=== PATIENT | female | born 1975 | race African-American/Black ===

== ENCOUNTER 2017-06-16 18:36 | Emergency (ER) | payer BC, SELFPAY ==
[2017-06-16] MEDS ORDERED: Ondansetron ODT 4 MG TAB ONE (18:51)
[2017-06-16 20:44] LABS: #Basophils 0.1 thou/uL (0.0-0.2); #Lymphocytes 0.5 thou/uL (1.20-3.40); #Monocytes 0.2 thou/uL (0.11-0.59); #Neutrophils 5.5 thou/uL (1.40-6.50); %Basophils 0.9 % (0.0-1.0); %Monocytes 2.7 % (0.0-10.0); %Neutrophils 88.5 % (42.0-75.0); Hemoglobin 14.7 g/dL (12.0-16.0); Mean Corpuscular HGB CONC 33.3 g/dL (32.0-36.0); Mean Corpuscular Hemoglobin 29.8 pg (27.0-31.0); Mean Corpuscular Volume 89.4 fl (81.0-99.0); Mean Platelet Volume 9.6 fL (7.4-10.4); Platelet Count 138 thou/uL (130-400); Red Blood Cell (RBC) Count 4.93 mill/uL (4.20-5.40); White Blood Cell (WBC) Count 6.2 thou/uL (4.8-10.8)
[2017-06-16] MEDS ORDERED: Pantoprazole 40 MG VIAL ONE (20:56)
[2017-06-16] MEDS ORDERED: Promethazine HCl 25 MG/ML VIAL ONE (20:56)
[2017-06-16 21:02] LABS: ALT (SGPT) 39 U/L (8-55); AST (SGOT) 36 U/L (5-34); Albumin 4.8 g/dL (3.5-5.0); Alkaline Phosphatase 49 U/L (40-150); Anion Gap 14 mmol/L (10-20); BUN (Urea Nitrogen) 13 mg/dL (7.0-18.7); Bilirubin, Total 0.4 mg/dL (0.2-1.2); Calc. Creatinine Clearance 0 mL/min (70-130); Calcium 10.4 mg/dL (7.8-10.44); Carbon Dioxide 22 mmol/L (22-29); Chloride 112 mmol/L (98-107); Estimated GFR-MDRD 89; Globulin 3.7 g/dL (2.4-3.5); Glucose 147 mg/dL (70-105); Potassium 3.9 mmol/L (3.5-5.1); Protein, Total 8.5 g/dL (6.0-8.3); Sodium 144 mmol/L (136-145)
[2017-06-16] MEDS ORDERED: Meclizine HCl 25 MG TAB ONE (22:19)
[2017-06-16] MEDS ORDERED: Ketorolac Tromethamine 30 MG/ML VIAL ONE (22:43)
== END 2017-06-17 01:00 | disposition home or self-care (01) ==
LOC: ERS 18:36
DX: R11.2 Nausea with vomiting, unspecified (principal); R42 Dizziness and giddiness; F41.9 Anxiety disorder, unspecified; F17.210 Nicotine dependence, cigarettes, uncomplicated; Z71.6 Tobacco abuse counseling; Z79.899 Other long term (current) drug therapy
CPT/HCPCS: 80053; 83690; 85025; 85652; 96361; 96374; 96375; 99406; C9113; J1885; J2550; Q0162

== ENCOUNTER 2017-07-12 15:28 | Inpatient (IN) | payer SELFPAY ==
[2017-07-12] MEDS ORDERED: Magnesium Sulfate 2 GM/100 ML BAG ONE ×3 (16:04→18:26)
[2017-07-12] MEDS ORDERED: Promethazine HCl 25 MG/ML VIAL ONE (16:20)
[2017-07-12 16:38] LABS: Hemoglobin 14.7 g/dL (12.0-16.0); Mean Corpuscular HGB CONC 32.6 g/dL (32.0-36.0); Mean Corpuscular Hemoglobin 29.5 pg (27.0-31.0); Mean Corpuscular Volume 90.3 fl (81.0-99.0); Mean Platelet Volume 10.1 fL (7.4-10.4); Platelet Count 154 thou/uL (130-400); RBC Distribution Width 15.5 % (11.5-14.5); White Blood Cell (WBC) Count 6.3 thou/uL (4.8-10.8)
[2017-07-12 16:57] LABS: CKMB 1.3 ng/mL (0-6.6)
[2017-07-12 17:00] LABS: #Basophils 0.1 thou/uL (0.0-0.2); #Lymphocytes 0.6 thou/uL (1.20-3.40); #Monocytes 0.2 thou/uL (0.11-0.59); #Neutrophils 5.4 thou/uL (1.40-6.50); %Basophils 1.6 % (0.0-1.0); %Eosinophils 0.2 % (0.0-10.0); %Lymphocytes 9.4 % (21.0-51.0); %Monocytes 3.3 % (0.0-10.0); %Neutrophils 85.6 % (42.0-75.0); Anisocytosis SLIGHT = 6-15 cells (100X) (0-5/hpf); MDiff Complete? YES; PLT Morphology Comment Appears Adequate
[2017-07-12 17:07] LABS: ALT (SGPT) 23 U/L (8-55); AST (SGOT) 36 U/L (5-34); Albumin 4.6 g/dL (3.5-5.0); Alkaline Phosphatase 49 U/L (40-150); Anion Gap 19 mmol/L (10-20); BUN (Urea Nitrogen) 13 mg/dL (7.0-18.7); Bilirubin, Total 0.4 mg/dL (0.2-1.2); CK (CPK) 111 U/L (29-168); CRP (Inflammatory) Less than 0.50 mg/dL (= or < 0.5); Calc. Creatinine Clearance 0 mL/min (70-130); Calcium 10.4 mg/dL (7.8-10.44); Carbon Dioxide 16 mmol/L (22-29); Chloride 109 mmol/L (98-107); Estimated GFR-MDRD Greater than 90; Globulin 4.4 g/dL (2.4-3.5); Glucose 142 mg/dL (70-105); Lipase 8 U/L (8-78); Sodium 139 mmol/L (136-145)
[2017-07-12 17:29] LABS: Troponin I Less than 0.010 ng/mL (< 0.028)
[2017-07-12] MEDS ORDERED: Morphine 4 MG/ML VIAL ONE (18:20)
[2017-07-12] MEDS ORDERED: NS 0.9% w/ 20 MEQ KCL 1,000 ML IV SCH (18:30)
[2017-07-12 18:38] LABS: Bilirubin Negative (Negative); Blood, Urine Negative (Negative); Clarity CLOUDY (Clear); Glucose, Urine (Dipstick) Negative (Negative); Leukocyte Negative (Negative); Nitrite Negative (Negative); Protein, Urine (Dipstick) Negative (Neg-Trace); Specific Gravity, Urine 1.018 (1.002-1.036); Urobilinogen 0.2 mg/dL (0.2-1.0); pH, Urine 7.5 (5.0-9.0)
[2017-07-12 18:40] LABS: Acetaminophen Less than 6.0 mcg/mL (10.0-30.0); Alcohol Less than 10 mg/dL (Less than 10); Salicylate Less than 8.0 mg/dL (15.0-30.0)
[2017-07-12 18:46] LABS: Amphetamine Not Detected (NotDetected); Barbiturates Screen Not Detected (NotDetected); Benzodiazepine Screen Not Detected (NotDetected); Cocaine Metabolite Screen Not Detected (NotDetected); Medtox Control Line Valid? VALID (VALID); Medtox Reader # READER 4; Methadone Not Detected (NotDetected); Methamphetamine Not Detected (NotDetected); Opiate Screen Not Detected (NotDetected); Oxycodone Screen Not Detected (NotDetected); Phencyclidine (PCP) Not Detected (NotDetected); THC/Cannabinoid Screen Detected (NotDetected); Tricyclic Screen Not Detected (NotDetected)
[2017-07-12 20:08] VITALS: BMI 21.6
[2017-07-12] MEDS ORDERED: 1/2 NS w/KCL 20 mEq 1,000 ML IV SCH (20:45)
[2017-07-12 21:36] LABS: Lactic Acid 1.9 mmol/L (0.5-2.2)
[2017-07-12 21:39] LABS: Troponin I Less than 0.010 ng/mL (< 0.028)
[2017-07-12] MEDS ORDERED: Morphine 4 MG/ML VIAL SLOW IVP PRN (22:21)
[2017-07-12] MEDS ORDERED: Diabetic Tussin 200 MG/10 ML UDCUP PO PRN (22:25)
[2017-07-12] MEDS ORDERED: Loratadine 10 MG TAB PO PRN (22:25)
[2017-07-12] MEDS ORDERED: Ondansetron HCl/PF 4 MG/2 ML Vial IVP PRN ×2 (22:25→22:30)
[2017-07-12] MEDS ORDERED: Calcium Carbonate 500 MG ChewTAB PO PRN (22:25)
[2017-07-12] MEDS ORDERED: Bisacodyl 5 MG TAB PO PRN ×2 (22:25)
[2017-07-12] MEDS ORDERED: Senokot 8.6 MG TAB PO PRN ×2 (22:25)
[2017-07-12] MEDS ORDERED: traMADol HCl 50 MG TAB PO PRN (22:25)
[2017-07-12] MEDS ORDERED: Mag-Al 1200 mg/1200 mg/30 ML UDCUP PO PRN (22:25)
[2017-07-12] MEDS ORDERED: Nitroglycerin 0.4 MG TAB (25 Tab Bottle) SL PRN (22:25)
[2017-07-12] MEDS ORDERED: Benzonatate 100 MG CAP PO PRN (22:25)
[2017-07-12] MEDS ORDERED: SUMAtriptan Succinate 6 MG/0.5 ML VIAL SC PRN (22:32)
[2017-07-12] MEDS ORDERED: SUMAtriptan Succinate 6 MG/0.5 ML VIAL SC SCH (22:45)
[2017-07-12] MEDS ORDERED: Meclizine HCl 25 MG TAB PO SCH (22:45)
[2017-07-13 00:44] LABS: Troponin I Less than 0.010 ng/mL (< 0.028)
[2017-07-13] MEDS ORDERED: Naloxone HCl 2 MG in Sodium Chloride 0.9% 500 ML IV PRN (01:51)
[2017-07-13] MEDS ORDERED: Naloxone HCl 2 MG, Admixture Fee 1 EACH in Sodium Chloride 0.9% 500 ML IV PRN (01:57)
[2017-07-13] MEDS ORDERED: Sodium Chloride 0.9% 1,000 ML IV SCH (02:00)
--- NOTE | 2017-07-13 02:14 | HP ---
DATE OF ADMISSION: 07/12/2017 CHIEF COMPLAINT: Vomiting and dizziness. HISTORY OF PRESENT ILLNESS: Ms. Jacques is a 42-year-old -[place] female with past medical hist ory of cyclic vomiting and chronic marijuana abuse, who presented to the ER with the above-mentioned complaint. History is mainly obtained by her female partner who is present in the room. Ms. Jacques is very somnolent at this time and is not willing to participate in the examination or history. According to her partner, she has been feeling fine up until this morning when she started to feel di zzy and started to throw up. She has not been able to keep anything down since this morning. She al so had some shortness of breath and diarrhea since early this morning. No inciting factors. No reli eving factors either. She normally takes meclizine as well as Phenergan as prescribed by her primary care physician and has been stable on those. Upon presentation to the emergency room, she was hemodynamically stable, but her heart rate was found to be low at 35. Her EKG showed prolonged QT interval and some bigeminy. Otherwise, rest of her wo rkup including CBC and serum chemistries were unremarkable. She did have elevated lactic acid at 3.8 thought to be secondary to vomiting and her drug screen was positive for marijuana. She received mo re Zofran and Phenergan in the emergency room along with magnesium. Case was discussed between the E R physician and metal stamper on-call, Dr. Gordon and she is now being admitted to Intermediate Care Unit for symptomatic bradycardia, prolonged QT interval bigeminy as well as for intractable vomiting and vertigo. PAST MEDICAL HISTORY: 1. Cyclic vomiting. 2. Chronic cannabis use. 3. History of esophageal diverticula by EGD in 2012. SURGICAL HISTORY: Tubal ligation 2005, EGD 2012. ALLERGIES: AMOXICILLIN, DOXYCYCLINE, PHENAZOPYRIDINE. CURRENT HOME MEDICATIONS: Phenergan 25 mg every 6 hours as needed, meclizine 25 mg every 6 hours as needed. FAMILY HISTORY: Diabetes mellitus and hypertension. SOCIAL HISTORY: The patient is using marijuana on a daily basis. Her domestic partner denies any to bacco or alcohol abuse except for once in a while. She is homosexual. REVIEW OF SYSTEMS: It is limited as the patient is somewhat somnolent and is not answering most of m y questions at this time. According to her partner present in the room, she has no other recent illn esses. LABORATORY DATA: CBC unremarkable except for neutrophils at 85%. Serum chemistry showed chloride 10 9, bicarbonate 16, blood sugar 142, lactic acid 3.8. Cardiac enzymes, troponin less than 0.10 x3. L ipase is normal. TSH is normal. CK-MB is normal. C-reactive protein is normal. Urinalysis showed trace ketones and urine toxicology is positive for cannabinoids. Plasma alcohol level less than 10. A 12-lead EKG by my review shows sinus rhythm at 65 beats per minute with frequent PVCs in the patter n of bigeminy and prolonged QT interval. PHYSICAL EXAMINATION: VITAL SIGNS: Upon presentation, blood pressure 144/69, heart rate 35, respirations 22, saturating 99 % on room air, temperature 98.0. GENERAL: She is somnolent but in no acute distress, easily awoken, but falls back asleep. She is ly ing comfortably at this time. HEENT: Mucous membranes are slightly dry. No oropharyngeal exudate or erythema. Head is normocepha lic, atraumatic. Pupils are equal, reactive to light and accommodation. Extraocular movement intact . NECK: Supple without any lymphadenopathy, JVD, or bruit. CHEST: Clear to auscultation without any wheezing, rales or rhonchi. CARDIOVASCULAR: Rhythm is regular without any murmur, rubs, or gallops. ABDOMEN: Tender to palpation diffusely. No rebound, guarding, or rigidity. Positive bowel sounds. EXTREMITIES: Free of any cyanosis, clubbing, or edema. NEUROLOGIC: Nonfocal. SKIN: Free of any rashes or bruises, feel warm and dry to touch. IMPRESSION AND PLAN: 1. Sinus bradycardia and prolonged QT interval, this is most likely secondary to the use of Phenerga n on a pretty regular basis. At this time, we will avoid any ondansetron or Phenergan or any other Q T prolonging agents. She has received magnesium in the emergency room. Echocardiogram will be order ed and Cardiology will be consulted in the morning. Serial cardiac enzymes have been trended and are rather unremarkable. She is hemodynamically stable at this time. Continue with gentle IV fluid hyd ration. 2. Intractable vomiting and vertigo. Because of the prolonged QT interval, we cannot use any Phener graeme and Zofran in this patient. Continue with meclizine. Add sumatriptan x1 to see if this will hel p with intractable vertigo and cyclic vomiting. The patient is currently comfortable and not throwin g up anymore. 3. Chronic marijuana abuse. Some of her symptoms are attributed because of the cannabis including t he bradycardia, prolonged QT, somnolence as well as dizziness. The patient is not awake enough to do any counseling at this time. This was discussed with the partner in the room 4. Deep venous thrombosis and gastrointestinal prophylaxis. 5. Code status: FULL CODE. Discussed with the partner. 6. Lactic acidosis likely related to tissue ischemia from vomiting and dehydration. Continue with I V fluids and recheck in the morning. No evidence to suggest any infection at this time. DISPOSITION: Ms. Jacques is currently being admitted to IMCU for sinus bradycardia, prolonged QT interv al, along with vomiting and dehydration. Estimated length of stay is at least 2-3 midnight. Further management will depend upon her clinical course and Cardiology recommendations.
[2017-07-13] MEDS ORDERED: Cyclobenzaprine 10 MG TAB PO SCH (03:15)
[2017-07-13 03:59] VITALS: TEMP 97.8
[2017-07-13 04:05] VITALS: BP 107/65
[2017-07-13] MEDS ORDERED: Meclizine HCl 25 MG TAB PO SCH (06:00)
[2017-07-13] MEDS ORDERED: Famotidine 20 MG TAB PO SCH (09:00)
[2017-07-13] MEDS ORDERED: FLU VACC QS2017-18 36 mo. & older 0.5 ML SYRINGE IM ONE (09:00)
[2017-07-13] MEDS ORDERED: Enoxaparin Sodium 40 MG/0.4 ML SYRINGE SC SCH (09:00)
--- NOTE | 2017-07-13 14:13 | DIS ---
DATE OF ADMISSION: 07/12/2017 DATE OF DISCHARGE: 07/13/2017 The patient left against medical advice. DISCHARGE DIAGNOSES: 1. Symptomatic bradycardia. 2. Chronic cannabis use. 3. Cyclical vomiting likely cannabis hyperemesis syndrome. 4. Esophageal diverticula found on esophagogastroduodenoscopy in 2012. 5. Lactic acidosis. 6. Dehydration and lactic acidosis. 7. Chronic marijuana abuse. 8. Intractable vomiting and vertigo. 9. Sinus bradycardia, prolonged QT. CONSULTATIONS: None. PROCEDURES: None. HISTORY AND PHYSICAL: Ms. Jacques is a 42-year-old female with the above history who presented in the e mergency department for evaluation on 07/12/2017. Workup showed lactic acidosis, dehydration. She w as given IV fluids and we were called for admission. HOSPITAL COURSE: The patient was seen and examined by Dr. Harrington. She was placed in the [facility]. She was hemodynamically stable and was started on gentle IV hydration. Echocardiogram was ordered along with Cardiology consult. The patient was subsequently transferred to the [facility]. At shift change at 0700 today, patient refused to stay and left against medical advice before anybody could come and talk to her. DISCHARGE CONDITION: None. DISPOSITION: The patient left against medical advice. DISCHARGE MEDICATIONS: None given. DISCHARGE INSTRUCTIONS: None given.
[2017-07-14 11:28] LABS: Base Excess-Venous -5.1 mmol/L (0 (+/- 2.5)); Bicarbonate (HCO3v) 19.7 mmol/L (1.0-85.0); CO2 Tension (PvCO2) 35.4 mmHg (41.0-51.0); Calcium, Ionized 1.13 mmol/L (1.12-1.32); Hemoglobin - Calc 15.5 g/dL (12.0-18.0); O2 Tension (PvO2) 44.2 mmHg (35.0-45.0); Potassium 4.5 mmol/L (3.4-4.7); T. Carbon Dioxide 20.8 mmol/L (1.0-85.0); pH (Venous) 7.352 (7.35-7.45); vO2 Saturation-calc 78.1 % (94-98)
== END 2017-07-13 07:15 | disposition left against medical advice (07) | DRG 103 ==
LOC: ERS 15:28 → IMCU/EMU 18:24
PROVIDERS: ADMIT Internal Medicine; ATTEND Internal Medicine
DX: G43.A0 Cyclical vomiting, in migraine, not intractable (principal); E87.2 Acidosis; R00.1 Bradycardia, unspecified; I45.81 Long QT syndrome; F12.10 Cannabis abuse, uncomplicated; R42 Dizziness and giddiness; E86.0 Dehydration
CPT/HCPCS: 36415; 36416; 80053; 80306; 80307; 81003; 82330; 82550; 82553; 82803; 83605; 83690; 83735; 84100; 84443; 84484; 85025; 86140; 87040; 93005; 94760; 96361; 96365; 96366; 96374; 96375; 99406; J2270; J2310; J2550; J3030; J3475; J7050

== ENCOUNTER 2017-07-14 07:14 | Emergency (ER) | payer SELFPAY ==
[2017-07-14] MEDS ORDERED: Ondansetron HCl/PF 4 MG/2 ML Vial ONE (07:37)
[2017-07-14 08:09] LABS: #Basophils 0.1 thou/uL (0.0-0.2); #Lymphocytes 1.4 thou/uL (1.20-3.40); #Monocytes 0.3 thou/uL (0.11-0.59); #Neutrophils 3.9 thou/uL (1.40-6.50); %Basophils 1.6 % (0.0-1.0); %Eosinophils 0.6 % (0.0-10.0); %Lymphocytes 24.6 % (21.0-51.0); %Monocytes 5.7 % (0.0-10.0); %Neutrophils 67.6 % (42.0-75.0); Hemoglobin 14.3 g/dL (12.0-16.0); Mean Corpuscular HGB CONC 33.3 g/dL (32.0-36.0); Mean Corpuscular Volume 90.1 fl (81.0-99.0); Mean Platelet Volume 9.5 fL (7.4-10.4); Platelet Count 157 thou/uL (130-400); RBC Distribution Width 15.4 % (11.5-14.5); Red Blood Cell (RBC) Count 4.77 mill/uL (4.20-5.40); White Blood Cell (WBC) Count 5.7 thou/uL (4.8-10.8)
[2017-07-14 08:11] LABS: BHCG - Serum Negative (NEGATIVE); Pregs Control Background? CLEAR/WHITE (CLR/WHITE); Pregs Control Bar Appear? YES (CONTROL BAR)
[2017-07-14 08:22] LABS: ALT (SGPT) 21 U/L (8-55); AST (SGOT) 19 U/L (5-34); Albumin 4.3 g/dL (3.5-5.0); Alkaline Phosphatase 43 U/L (40-150); Anion Gap 11 mmol/L (10-20); BUN (Urea Nitrogen) 13 mg/dL (7.0-18.7); Bilirubin, Total 0.6 mg/dL (0.2-1.2); CK (CPK) 94 U/L (29-168); Calc. Creatinine Clearance 0 mL/min (70-130); Calcium 9.4 mg/dL (7.8-10.44); Carbon Dioxide 25 mmol/L (22-29); Chloride 106 mmol/L (98-107); Estimated GFR-MDRD Greater than 90; Globulin 3.4 g/dL (2.4-3.5); Glucose 113 mg/dL (70-105); Lipase 18 U/L (8-78); Potassium 3.2 mmol/L (3.5-5.1); Protein, Total 7.7 g/dL (6.0-8.3); Sodium 139 mmol/L (136-145)
[2017-07-14 08:26] LABS: CKMB 0.9 ng/mL (0-6.6); Troponin I Less than 0.010 ng/mL (< 0.028)
[2017-07-14] MEDS ORDERED: Potassium Chloride 20 MEQ TAB ONE (09:07)
[2017-07-14 09:29] LABS: Bilirubin Negative (Negative); Blood, Urine Negative (Negative); Clarity CLEAR (Clear); Glucose, Urine (Dipstick) Negative (Negative); Leukocyte Negative (Negative); Nitrite Negative (Negative); Protein, Urine (Dipstick) Negative (Neg-Trace); Specific Gravity, Urine 1.029 (1.002-1.036); pH, Urine 5.5 (5.0-9.0)
[2017-07-14 09:37] LABS: Amphetamine Not Detected (NotDetected); Barbiturates Screen Not Detected (NotDetected); Benzodiazepine Screen Not Detected (NotDetected); Cocaine Metabolite Screen Not Detected (NotDetected); Medtox Control Line Valid? VALID (VALID); Medtox Reader # READER 1; Methadone Not Detected (NotDetected); Methamphetamine Not Detected (NotDetected); Opiate Screen Detected (NotDetected); Oxycodone Screen Not Detected (NotDetected); Phencyclidine (PCP) Not Detected (NotDetected); THC/Cannabinoid Screen Detected (NotDetected); Tricyclic Screen Not Detected (NotDetected)
[2017-07-14] MEDS ORDERED: Morphine 4 MG/ML VIAL ONE (11:37)
--- NOTE | 2017-07-17 15:02 | EKG ---
Test Reason : Blood Pressure : / mmHG Vent. Rate : 062 BPM Atrial Rate : 062 BPM P-R Int : 000 ms QRS Dur : 080 ms QT Int : 426 ms P-R-T Axes : 069 002 055 degrees QTc Int : 432 ms Undetermined rhythm Septal infarct , age undetermined Abnormal ECG Confirmed by DOUG EWING ([id number]), food editor RENE MCCARTHY ([id number]) on 07/17/2017 3:00:32 PM Referred By: Confirmed By:DOUG EWING
== END 2017-07-14 11:47 | disposition home or self-care (01) ==
LOC: ERS 07:14
DX: G43.A0 Cyclical vomiting, in migraine, not intractable (principal); E86.0 Dehydration; F12.10 Cannabis abuse, uncomplicated; K22.5 Diverticulum of esophagus, acquired; E87.2 Acidosis; R00.1 Bradycardia, unspecified; F41.9 Anxiety disorder, unspecified; F17.210 Nicotine dependence, cigarettes, uncomplicated
CPT/HCPCS: 36415; 80053; 80306; 81003; 82550; 82553; 83605; 83690; 84484; 84703; 85025; 93005; 96360; 96361; 96374; 96375; J2270; J2405

== ENCOUNTER 2018-05-05 12:47 | Outpatient (CLI) | payer OTHER | END 2018-05-05 12:48 | disposition home or self-care (01) | LOC: BICMAMMO 12:47 | PROVIDERS: ATTEND Family Medicine | DX: Z12.31 Encounter for screening mammogram for malignant neoplasm of breast (principal) | CPT/HCPCS: 77063; 77067 ==